=== PATIENT | female | born 1955 | race Caucasian/White ===

== ENCOUNTER 2018-06-19 03:28 | Inpatient (IN) | payer OTHER ==
[~2018-06-19] VITALS: Ht 160 cm; Wt 76.7 kg
[~2018-06-19 03:28] MED LIST: AZOR 5-40 MG T1 EACH PO; BENADRYL25 MG PO; BIOTIN5 M1; DUAVEE 0.45-201 EACH; FERROUS SULFAT325 M3 PO; FLONASE ALLERG9.9 ML; MAGNESIUM400 M1 PO; PEPCID AC20 M2; PROAIR HFA8.5 GM INH; VITAMIN D250000 UNIT PO; VITAMIN D31000 UNI2 PO
--- NOTE | 2018-06-19 12:16 | Operative Report ---
Operative/Inv Procedure Report Surgery Date: 06/19/18 Name of Procedure: Right total knee arthroplasty Pre-Operative Diagnosis: Primary osteoarthritis right knee Post-Operative Diagnosis: Same Estimated Blood Loss: less than 50ml Surgeon/Remnant Sorter: Alfonso VAZQUEZ,Vernon RENAE Anesthesia: block (spinal) IV Fluids: See anesthesia record Implants: Gerlaw triathlon posterior stabilized knee. Size 4 femur, size 4 tibia 9 mm polyethylene insert and a 29 patella Drains: None Specimens: Bone to pathology Tourniquet: 43 minutes Complications: None Condition: Stable Operative Indication: Patient 62-year-old female with osteoarthritis of the right knee which is failed conservative treatment including Kenalog injections. She was indicated for a total knee arthroscopy. The risks and benefits the procedure were discussed with the patient in detail and he wished she wished to proceed. Skilled set of hands as necessary provided by physician physician assistant Magan Boss related with retraction limb positioning and retraction and component assembly throughout the case. Operative/Procedure Note Note: Once informed consent was obtained and the correct limb was identified patient brought the operating placed on table supine position. After demonstration of spinal anesthesia patient had Stack catheter placed, a thigh tourniquet placed and the right lower exam is prepped and draped in usual sterile fashion. To begin the procedure standard midline incision made for right total knee arthroscopy. Sharp dissection is carried onto the skin and subcutaneous tissue. A medial parapatellar arthrotomy is performed and the patella was everted. Fat pad removed from patellar tendon. The patellar thickness was measured to be 21 mm and a plan resection of 8 mm was performed on the patella. The patella was then sized to a size 29 symmetric patella button. The [place] for the patellar button was placed onto the patella and the lug holes were drilled. The patella was protected and retracted laterally and the knee is placed in flexion. Step drill was used to enter the implant intramedullary canal the femur. The distal femoral cutting guide was placed with a 6 degrees valgus cut and a 10 mm resection for the plan resection. The distal femoral resection was made without complication. The femur was then sized with the sizing block. The femur sized to a size 4 femur. A size 4 4-in-1 cutting block was placed onto the femur and the anterior, posterior, chamfer cuts were made without complication. Excess bone was passed off as specimen. The box cut guide was then placed on the femur and the box cut was made for posterior stabilized knee. At this point the lateral meniscal and medial meniscal tissue was removed sharply with a #10 blade. Curved osteotome was used to remove posterior osteophytes from the posterior femoral condyles. Attention was then turned to the tibial cut. A pickle fork retractor was placed with Z retractors to protect the collateral collateral ligaments and the intramedullary step drill was used to enter the intramedullary canal of the tibia. The intramedullary cutting guide for the tibia was placed and a plan resection of 4 mm of bone was taken off the medial, or affected side. Tibial cut was made without complication bone was passed off as specimen. The tibia sized to be a size 4 tibial tray. A trial reduction was done with a 4 tibia and tray and a 4 femur with a 9 mm polyethylene insert. The knee had full extension and flexion of 130 degrees. The knee was stable to varus and valgus stress at 0 and 60 degrees. Patella tracked nicely. The knee was taken through range of motion the tibial component rotation was marked. All components removed and the tibial tray was pinned in place for the keel cut. The keel cut was made without complication. At this point all options remove the knee was pulse lavaged. The cement was mixed on the back table and the components were cemented in place with the tibial component cemented first followed by the femoral component and the patellar button. A 9 mm trial insert was placed and he is placed in extension as the cement hardened. Once the cement was excess cement was removed and once the cement had hardened the knee was taken through range of motion and found to be stable again. A 9 mm polyethylene insert was opened and locked into place on the tibial tray. Tourniquet was released and any bleeding was stopped with electrocautery. The arthrotomy was then closed with #1 Vicryl interrupted sutures. The subcutaneous tissues were closed with #1 Vicryl and 2-0 Vicryl interrupted sutures. Sterile dressing was applied after the skin had been closed by stephany and the patient was awakened and taken recovery in stable condition.
--- NOTE | 2018-06-19 13:16 | Admission Core Measures ---
Acute Coronary Syndrome (CM) ACS Core Measures Acute Coronary Syndrome Diagnosis No Congestive Heart Failure (NEW) CHF Core Measures Congestive Heart Failure Diagnosis No Cerebrovascular Accident CVA Core Measures CVA/TIA Diagnosis No Venous Thromboembolism VTE Core Ha (View Protocol) VTE Risk Factors Surgery No Mechanical VTE Prophylaxis d/t N/A MechProphylax Ordered No VTE Pharm Prophylaxis d/t NA PharmProphylax ordered Problem List As ranked by this Provider includes Assessment & Plan 1. Unilateral primary osteoarthritis, right knee HOME MEDS Home Med List Albuterol Sulfate (Proair Hfa) 90 MCG HFA.AER.AD 2 PUF INH Q4-6 PRN PRN ASTHMA (Reported) Amlodipine Bes/Olmesartan Med (Ángel 5-40 MG Tablet) 5 MG-40 MG TABLET 1 TAB PO DAILY HTN (Reported) Cholecalciferol (Vitamin D3) 1,000 UNIT TABLET 1 TAB PO DAILY SUPPLEMENT ( Reported) diphenhydrAMINE HCl (Benadryl) 25 MG CAP 2 CAP PO QPM SLEEP AID (Reported) Ergocalciferol (Vitamin D2) (Vitamin D2) 50,000 UNIT CAPSULE 1 CAP PO QW SUPPLEMENT (Reported) Ferrous Sulfate 325 MG (65 MG IRON) TABLET 1 TAB PO DAILY SUPPLEMENT ( Reported) Magnesium Oxide (Magnesium) 400 MG CAPSULE 1 CAP PO DAILY SUPPLEMENT ( Reported)
[2018-06-19] MEDS ORDERED: PERCOCET 5-3251 EACH PO (13:22)
[2018-06-19] MEDS ORDERED: ELIQUIS2.5 M1 PO (13:22)
--- NOTE | 2018-06-19 13:24 | Patient Discharge Instructions ---
Discharge Instructions General Discharge Information You were seen/treated for: Right knee pain related to unilateral primary osteoarthritis You had these procedures: Right total knee replacement Watch for these problems: Increasing pain despite the use of pain medication Increasing redness, warmth or swelling Drainage of any type from incision Inability to bear weight on operative leg Persistent nausea and vomiting Fever greater than 101.5 degrees Call Surgeon to remove: Marty Do not soak the wound: Yes No bath, but you may shower: Yes Other wound care: Please keep wound clean and dry. No ointments or lotions of any type on or near incision at any time. No exceptions. Your dressing will be changed by your nurse on the second day after your surgery. Daily dry dressing changes are recommended each day thereafter. Do not soak your wound in a bath or pool at any time until otherwise indicated by your surgeon. You may shower, please dry wound immediately after shower with a clean towel. Special Instructions: Constipation: Pain medication can cause constipation. Your surgeon has recommended that you take Colace and miralax each day. You may discontinue this medication if you develop loose stool or diarrhea. If you wish to continue this medication, it is available over the counter. If you are unable to move your bowels after several days, if you are unable to pass gas and are developing bloating, nausea, or vomiting as a result, please contact your doctor. Diet Continue normal diet: Yes Recommended Diet: Regular Activity Full Activity/No Limits: No Activity Self Limited: Yes Pounds, do NOT lift more than: 10 Acute Coronary Syndrome Inclusion Criteria At DC or during hospital stay patient has or had the following: ACS DIAGNOSIS No Discharge Core Measures Meds if any: Prescribed or Continued at Discharge Meds if any: NOT Prescribed or Continued at Discharge Congestive Heart Failure Inclusion Criteria At DC or during hospital stay patient has or had the following: CHF DIAGNOSIS No Discharge Core Measures Meds if any: Prescribed or Continued at Discharge Meds if any: NOT Prescribed or Continued at Discharge Cerebrovascular accident Inclusion Criteria At DC or during hospital stay patient has or had the following: CVA/TIA Diagnosis No Discharge Core Measures Meds if any: Prescribed or Continued at Discharge Meds if any: NOT Prescribed or Continued at Discharge Venous thromboembolism Inclusion Criteria VTE Diagnosis No VTE Type NONE VTE Confirmed by (Test) NONE Discharge Core Measures - Per Current guidelines, there needs to be overlap - treatment for the first 5 days of Warfarin therapy. - If discharged on Warfarin prior to 5 days of - overlap therapy, the patient will need to be - assessed for post discharge needs including - *Post discharge parental anticoagulation - *Warfarin and/or parental anticoagulation education - *Follow up date to check INR post discharge At least 5 days overlap therapy as Inpatient No Meds if any: Prescribed or Continued at Discharge Note: Overlap Therapy is Warfarin and Anticoagulant Meds if any: NOT Prescribed or Continued at Discharge
--- NOTE | 2018-06-19 13:27 | Surgical Discharge Summary ---
Visit Information Visit Dates Admission Date: 06/19/18 Discharge Date: 06/22/18 History of Present Illness Chief Complaint: Right knee pain related to unilateral primary osteoarthritis Medical History Isolation History: Standard Surgical History Pertinent Surgical History: non-contributory Psychosocial History What is Your Primary Language? Somali Review of Systems: See H&P Hospital Course Course Attending Physician: Vernon Hamilton MD Primary Care Physician: Antwon VAZQUEZ,[facility] Course: Patient was admitted to the hospital for an elective total joint replacement. The procedure was tolerated well and patient was transferred to a general surgical floor. Diet was advanced and tolerated. The patient was evaluated and treated by physical therapy. At the time of hospital discharge, the vital signs were stable, neurovascular status was intact, and pain was controlled with the use of oral pain medications. Complications: None Allergies: Coded Allergies: iodine (HIVES 06/18/18) epinephrine (LOW BLOOD PRESSURE 06/18/18) Disposition Summary Disposition Principal Diagnosis: Right knee unilateral primary osteoarthritis Additional Diagnosis: None Discharge Disposition: home health services Discharge Instructions General Discharge Information Code Status: Full Code Patient's Diet: Regular, advance as tolerated Patient's Activity: WBAT Follow-Up Instructions/Appts: Follow up with Dr. Hamilton in 6 weeks from date of surgery. Please call office to arrange/confirm this appointment. staple removal around post-op day#14 (2 weeks after surgery) Medications at Discharge Discharge Medications: Continue taking these medications: Albuterol Sulfate (Proair Hfa) 90 MCG HFA.AER.AD 2 Puff Inhale through mouth EVERY 4-6 HOURS NEEDED as needed for ASTHMA Amlodipine Bes/Olmesartan Med (Ángel 5-40 MG Tablet) 5 MG-40 MG TABLET 1 Tablet ORAL DAILY Estrogens,Conj/Bazedoxifene (Duavee 0.45-20 MG Tablet) 0.45 MG-20 MG TABLET Ferrous Sulfate (Ferrous Sulfate) 325 MG (65 MG IRON) TABLET 1 Tablet ORAL DAILY diphenhydrAMINE HCl (Benadryl) 25 MG CAP 2 Capsule ORAL Every night Ergocalciferol (Vitamin D2) (Vitamin D2) 50,000 UNIT CAPSULE 1 Capsule ORAL Once a Week Comments: ON sunday Cholecalciferol (Vitamin D3) 1,000 UNIT TABLET 1 Tablet ORAL DAILY Biotin (Biotin) 5 MG CAPSULE Famotidine (Pepcid AC) 20 MG TABLET Magnesium Oxide (Magnesium) 400 MG CAPSULE 1 Capsule ORAL DAILY Fluticasone Propionate (Flonase Allergy Relief) 50 MCG/ACTUATION SPRAY.SUSP Start taking the following new medications: Apixaban (Eliquis) 2.5 MG TABLET 1 Tablet ORAL TWICE DAILY Qty = 84 No Refills Oxycodone HCl/Acetaminophen (Percocet 5-325 MG Tablet) 5 MG-325 MG TABLET 1-2 Tablet ORAL EVERY 4-6 HOURS as needed for PAIN Qty = 36 No Refills Copies To: Antwon VAZQUEZ,Deb
[2018-06-19 14:55] VITALS: BP 120/64
--- NOTE | 2018-06-19 15:03 | PN- Orthopedic ---
Subjective Subjective: Patient comfortable, no pain. She had moderate nausea after surgery however it is resolving at this time. There is no vomiting. No fever or flulike illness and she is recovering from surgery well thus far Objective Vital Signs and I&Os Vital signs stable, afebrile Physical Exam: Well-developed well-nourished no apparent distress. HEENT: Atraumatic, extraocular motion intact Neck: Supple, no lymphadenopathy Respiratory: No respiratory distress Extremities: No edema RIGHT lower extremity dressing in place, Range of motion is 0-60. Compression wrap in place. ALPS in place Neurovascularly intact distally Bilateral calves are supple, nontender. Neuro: Alert and oriented x3 Psych: Mood affect normal, normal memory normal judgment. Skin: Warm and dry, no rash on exposed skin Assessment/Plan Assessment/Plan Postop day #0 status post right total knee arthroplasty Perioperative antibiotics. Pain medication as needed. Out of bed Physical therapy, weightbearing as tolerated IV fluids Regular diet Follow a.m. labs Eliquis starting tomorrow morning for DVT prophylaxis SHIRLENE Stack in a.m. ALPS for DVT prophylaxis Regular home meds Dressing change postop day 2 Plan for discharge home in 2-3 days with VNA services Core Measures Venous Thromboembolism VTE Risk Factors Surgery No Mechanical VTE Prophylaxis d/t N/A MechProphylax Ordered No VTE Pharm Prophylaxis d/t NA PharmProphylax ordered
[2018-06-19 17:00] VITALS: BP 118/60
[2018-06-19 19:00] VITALS: BP 120/60
[2018-06-19 21:00] VITALS: BP 100/70
[2018-06-20 01:54] VITALS: BP 102/60
[2018-06-20 06:55] VITALS: BP 102/60
[2018-06-20 06:56] VITALS: BP 112/62
--- NOTE | 2018-06-20 08:35 | PN- Orthopedic ---
Subjective Subjective: Minimal pain in the right thigh, no other complaints, she is ambulating well, no acute events overnight Objective Vital Signs and I&Os Vital Signs Date Time Temp Pulse Resp B/P B/P Pulse O2 O2 Flow FiO2 Mean Ox Delivery Rate 06/20 0656 97.8 68 20 112/62 96 06/20 0154 98.1 87 20 102/60 95 06/19 2100 97.6 81 19 100/70 94 Room Air 06/19 1900 97.5 80 20 120/60 93 Room Air 06/19 1700 97.8 83 20 118/60 95 Room Air 06/19 1600 Room Air 06/19 1455 97.5 68 16 120/64 98 Room Air Intake & Output 06/20 1600 06/20 0800 06/20 0000 06/19 1600 06/19 0806/19 0000 Intake Total 900 500 Output Total 750 1000 Balance 150 -500 Intake, IV 600 300 Intake, Oral 300 200 Output, Urine 750 1000 Patient 169 lb Weight Weight Bed scale Measurement Method Physical Exam: Well-developed well-nourished no apparent distress. HEENT: Atraumatic, extraocular motion intact Neck: Supple, no lymphadenopathy Respiratory: No respiratory distress Extremities: No edema Right lower extremity dressing in place, Range of motion is 0-60. Compression wrap in place. ALPS in place Neurovascularly intact distally Bilateral calves are supple, nontender. Neuro: Alert and oriented x3 Psych: Mood affect normal, normal memory normal judgment. Skin: Warm and dry, no rash on exposed skin Results Last 48 Hours of Labs: Laboratory Tests 06/20 06 Chemistry Sodium Pending Potassium Pending Chloride Pending Carbon Dioxide Pending Anion Gap Pending BUN Pending Creatinine Pending BUN/Creatinine Ratio Pending Hematology CBC w Diff Pending WBC Pending RBC Pending Hgb Pending Hct Pending MCV Pending MCH Pending MCHC Pending RDW Pending Plt Count Pending MPV Pending Assessment/Plan Assessment/Plan Postop day #1 status post right total knee arthroplasty Pain medication as needed. Out of bed Physical therapy, weightbearing as tolerated DC IV fluids Regular diet Follow a.m. labs Start Eliquis for DVT prophylaxis this morning ALPS for DVT prophylaxis Regular home meds Dressing change postop day 2 Plan for discharge home tomorrow with VNA services Core Measures Venous Thromboembolism VTE Risk Factors Surgery No Mechanical VTE Prophylaxis d/t N/A MechProphylax Ordered No VTE Pharm Prophylaxis d/t NA PharmProphylax ordered
[2018-06-20 09:04] LABS: ABSOLUTE BASOPHIL COUNT 0 /CUMM (0.0-0.2); ABSOLUTE EOSINOPHIL COUNT 0 /CUMM (0.0-0.7); ABSOLUTE GRANULOCYTE CT 9.3 /CUMM (1.4-6.5); ABSOLUTE LYMPH COUNT 1.2 /CUMM (1.2-3.4); ABSOLUTE MONOCYTE COUNT 0.7 /CUMM (0.10-0.60); BASOPHIL % 0 % (0.0-2.0); EOSINOPHIL % 0 % (0-5); HEMATOCRIT 29.8 % (37-47); MEAN CORPUSCULAR HGB 29.2 PG (27.0-31.0); MEAN CORPUSCULAR HGB CONC 34.2 G/DL (33.0-37.0); MEAN CORPUSCULAR VOLUME 85.5 FL (81.0-99.0); MEAN PLATELET VOLUME 9.3 FL (7.4-10.4); PLATELET COUNT 156 /CUMM (130-400); RBC DISTRIBUTION WIDTH 12.9 % (11.5-14.5); RED BLOOD CELL CT 3.49 /CUMM (4.20-5.40); WHITE BLOOD CELL COUNT 11.2 /CUMM (4.8-10.8)
[2018-06-20 10:22] VITALS: BP 118/58
[2018-06-20 10:45] LABS: GRANULOCYTE % 83.1 % (42.2-75.2)
[2018-06-20 20:00] VITALS: BP 102/66
--- NOTE | 2018-06-21 06:56 | PN- Orthopedic ---
Subjective Subjective: POD #2 s/p right TKR. Resting comfortably in bed, although states she had alot of pain overnight. Just received oral pain medication. Passing flatus, no BM yet. Ambulating with PT. Voiding spontaneously. Objective Vital Signs and I&Os Vital Signs Date Time Temp Pulse Resp B/P B/P Pulse O2 O2 Flow FiO2 Mean Ox Delivery Rate 06/20 2107 70 102/66 06/20 2107 70 102/66 06/20 2000 98.2 70 20 102/66 98 Room Air 06/20 1600 98 Room Air 06/20 1022 98.4 63 18 118/58 96 Intake & Output 06/21 0000 06/20 1600 06/20 0000 06/19 1600 Intake Total 300 360 550 900 500 Output Total 650 726 957 3873 Balance 300 -290 250 150 -500 Intake, IV 150 600 300 Intake, Oral 300 360 400 300 200 Output, Urine 650 675 846 0630 Patient 169 lb Weight Weight Bed scale Measurement Method Physical Exam: Gen: AAOx3 in NAD Cor: S1+S2+ Lungs: CTA ronni Abd: soft, NT, ND Ext: right knee dressing removed, replaced. Incision C/D/I with stephany. No surrounding erythema or drainage noted. Edema noted around incision. Palpable DP pulse. Dorsiflexion/plantar flexion intact. Sensation grossly intact. Current Medications: Current Medications Sig/Deisy Start time Last Medication Dose Route Stop Time Status Admin Albuterol Sulfate 2 PUF Q4P PRN 06/19 151 AC INH Amlodipine Besylate 5 MG 06/20 PO 2106 Amlodipine Besylate 5 MG DAILY 06/20 900 DC PO Apixaban 2.5 MG BID 06/20 900 AC 06/20 PO 210 Celecoxib 400 MG DAILY 06/20 900 AC 06/20 PO 0850 Dextrose/Lactated 1,000 ML Q13H 06/19 1500 DC 06/20 Ringer's IV 0240 Diphenhydramine HCl 50 MG AT BEDTIME NEED.. 06/19 1515 06/20 PO 2229 Docusate Sodium 100 MG BID PRN 06/19 1215 AC 06/20 PO 0850 Famotidine 20 MG DAILY 06/20 PO 0851 Ferrous Sulfate 325 MG DAILY 06/20 900 AC 06/20 PO 0850 Losartan Potassium 50 MG 2100 06/20 2100 AC 06/20 PO 2106 Losartan Potassium 50 MG DAILY 06/20 09 DC PO Magnesium Oxide 400 MG DAILY 06/20 0900 AC 06/20 PO 0850 Morphine Sulfate 2 MG Q3P PRN 06/19 1500 AC 06/21 IV 0045 Non-Formulary 0 SEE ADMIN CRITERIA 06/20 900 DC Medication ANY Ondansetron HCl 4 MG Q6P PRN 06/19 1500 AC IV Oxycodone/ 1 TAB Q4P PRN 06/19 1500 AC Acetaminophen PO Oxycodone/ 2 TAB Q4P PRN 06/19 1500 AC 06/21 Acetaminophen PO 0538 Polyethylene Glycol 17 GM DAILY PRN 06/19 1215 AC PO Senna/Docusate Sodium 2 TAB AT BEDTIME NEED.. 06/19 1500 AC PO Results Last 48 Hours of Labs: Laboratory Tests 06/20 655 Chemistry Sodium (137 - 145 mmol/L) 137 Potassium (3.5 - 5.1 mmol/L) 4.0 Chloride (98 - 107 mmol/L) 106 Carbon Dioxide (22 - 30 mmol/L) 25 Anion Gap (5 - 16) 6 BUN (7 - 17 mg/dL) 12 Creatinine (0.5 - 1.0 mg/dL) 0.6 Estimated GFR (>60 ml/min) > 60 BUN/Creatinine Ratio (7 - 25 %) 20.0 Hematology CBC w Diff NO MAN DIFF REQ WBC (4.8 - 10.8 /CUMM) 11.2 H RBC (4.20 - 5.40 /CUMM) 3.49 L Hgb (12.0 - 16.0 G/DL) 10.2 L Hct (37 - 47 %) 29.8 L MCV (81.0 - 99.0 FL) 85.5 MCH (27.0 - 31.0 PG) 29.2 MCHC (33.0 - 37.0 G/DL) 34.2 RDW (11.5 - 14.5 %) 12.9 Plt Count (130 - 400 /CUMM) 156 MPV (7.4 - 10.4 FL) 9.3 Gran % (42.2 - 75.2 %) 83.1 H Lymphocytes % (20.5 - 51.1 %) 10.3 L Monocytes % (1.7 - 9.3 %) 6.6 Eosinophils % (0 - 5 %) 0 Basophils % (0.0 - 2.0 %) 0 Absolute Granulocytes (1.4 - 6.5 /CUMM) 9.3 H Absolute Lymphocytes (1.2 - 3.4 /CUMM) 1.2 Absolute Monocytes (0.10 - 0.60 /CUMM) 0.7 H Absolute Eosinophils (0.0 - 0.7 /CUMM) 0 Absolute Basophils (0.0 - 0.2 /CUMM) 0 Assessment/Plan Assessment/Plan A: POD #2 s/p right TKR; AVSS Plan: Continue pain medication, may need to change to Dilaudid if pain uncontrolled throughout day. Continue Physical therapy. Eliquis for DVT ppx. D/C home likely later today. Core Measures Venous Thromboembolism VTE Risk Factors Surgery No Mechanical VTE Prophylaxis d/t N/A MechProphylax Ordered No VTE Pharm Prophylaxis d/t NA PharmProphylax ordered
[2018-06-21 07:32] VITALS: BP 118/78
--- NOTE | 2018-06-21 12:46 | RADIOLOGY REPORT ---
EXAMINATION: XR KNEE, RIGHT CLINICAL INFORMATION: Status post right TKA. COMPARISON: MRI scan right knee 07/19/2015. TECHNIQUE: AP and lateral views of the right knee were obtained. FINDINGS: There are sequelae of a right total knee arthroplasty. The hardware appears in good anatomic position and intact. No fractures are demonstrated. There are expected postoperative changes in the soft tissues. IMPRESSION: 1. Status post right knee total arthroplasty.
[2018-06-21 15:39] VITALS: BP 150/84
[2018-06-21 23:01] VITALS: BP 130/60
[2018-06-22 06:28] VITALS: BP 120/78
[2018-06-22] MEDS ORDERED: DOCUSATE SODIU100 M3 PO (10:52)
[2018-06-22] MEDS ORDERED: CELEBREX200 M1 PO (10:52)
[2018-06-22] MEDS ORDERED: OMEPRAZOLE40 M1 PO (10:52)
[2018-06-22] MEDS ORDERED: MIRALAX119 GM PO (10:52)
--- NOTE | 2018-06-22 10:58 | PN- Orthopedic ---
Subjective Subjective: Reports pain controlled, significantly better after the one time dose of toradol. Tolerating diet. No dizziness. No shortness of breath. No chest pains. Voiding well. Cleared by PT for home. Anticipates discharge to home today. Objective Vital Signs and I&Os Vital Signs Date Time Temp Pulse Resp B/P B/P Pulse O2 O2 Flow FiO2 Mean Ox Delivery Rate 06/22 08 Room Air 06/22 628 98.6 79 20 120/78 95 Room Air 06/21 2301 98.1 68 20 130/60 96 Room Air 06/21 1935 85 148/84 06/21 193 85 148/84 06/21 1600 85 06/21 1539 98.4 385 20 150/84 97 Intake & Output 06/22 1600 06/22 0000 06/21 1600 06/21 0000 Intake Total 600 600 560 300 360 Output Total 360 650 Balance 240 600 560 300 -290 Intake, Oral 600 600 560 300 360 Output, Urine 360 650 Physical Exam: General - alert & oriented x 3. comfortable. no acute distress. Lungs - clear bilaterally. no w/r/r. Cardiac - s1s2. reg. Abdomen - soft. nontender. Extremities - warm bilaterally. dressing changed, right knee. incision well approximated with stephany. no erythema or exudates. calves soft and nontender b/ l. nvi. Current Medications: Current Medications Sig/Deisy Start time Last Medication Dose Route Stop Time Status Admin Albuterol Sulfate 2 PUF Q4P PRN 06/19 1515 AC INH Amlodipine Besylate 5 MG 06/20 PO 1934 Apixaban 2.5 MG BID 06/20 900 AC 06/22 PO 922 Celecoxib 400 MG DAILY 06/20 900 AC 06/22 PO 922 Diphenhydramine HCl 50 MG AT BEDTIME NEED.. 06/19 1515 06/21 PO 1934 Docusate Sodium 100 MG BID PRN 06/19 1215 AC 06/22 PO 922 Famotidine 20 MG DAILY 06/20 PO 922 Ferrous Sulfate 325 MG DAILY 06/20 900 AC 06/22 PO 922 Ketorolac 15 MG ONCE ONE 06/21 1400 DC 06/21 Tromethamine IV 06/21 1401 1452 Losartan Potassium 50 MG 06/20 AC 06/21 PO 1935 Magnesium Oxide 400 MG DAILY 06/20 0900 AC 06/22 PO 0923 Morphine Sulfate 2 MG Q3P PRN 06/19 1500 AC 06/21 IV 0045 Ondansetron HCl 4 MG Q6P PRN 06/19 1500 AC IV Oxycodone/ 1 TAB Q4P PRN 06/19 1500 AC Acetaminophen PO Oxycodone/ 2 TAB Q4P PRN 06/19 1500 AC 06/22 Acetaminophen PO 0924 Patient Medication 1 ED ONE ONE 06/21 2000 [place] Teaching ED 06/21 2001 Polyethylene Glycol 17 GM DAILY PRN 06/19 1215 AC 06/22 PO 0923 Senna/Docusate Sodium 2 TAB AT BEDTIME NEED.. 06/19 1500 AC PO Assessment/Plan Assessment/Plan This 62 year old female with hx htn, gerd, asthma, is POD #3 s/p right TKR, pain better controlled tolerating diet pain controlled currently dressing changed continue eliquis BID - dvt ppx continue PT continue bowel regime d/c home today with [facility] will d/w Core Measures Venous Thromboembolism VTE Risk Factors Surgery No Mechanical VTE Prophylaxis d/t N/A MechProphylax Ordered No VTE Pharm Prophylaxis d/t NA PharmProphylax ordered
== END 2018-06-22 13:49 | disposition home health service (06) | DRG 470 ==
LOC: SDA 03:28 → ENRESERV 13:00 → ENTRNSPT 14:28 → EDTRNSPT 14:41 → EDTRNSPTSTS 14:41 → 2NA 14:47 → CMPTRNSPT 15:14 → ENPENDDIS 06-22 10:57 → ENTRNSPT 06-22 13:46 → 2NA 06-22 13:49 → EDTRNSPT 06-22 13:54 → EDTRNSPTSTS 06-22 13:54 → CMPTRNSPT 06-22 14:04
PROVIDERS: Physician Assistant Surgical
PROC: 0SRC0J9 Replacement of Right Knee Joint with Synthetic Substitute, Cemented, Open Approach (ICD-10-PCS; principal; 2018-06-19)
PROC: 3E0T3BZ Introduction of Anesthetic Agent into Peripheral Nerves and Plexi, Percutaneous Approach (ICD-10-PCS; principal; 2018-06-19)
DX: M17.11 Unilateral primary osteoarthritis, right knee (principal); K21.9 Gastro-esophageal reflux disease without esophagitis; E78.5 Hyperlipidemia, unspecified; I10 Essential (primary) hypertension; J45.909 Unspecified asthma, uncomplicated; Z91.041 Radiographic dye allergy status; Z79.51 Long term (current) use of inhaled steroids
CPT/HCPCS: 2NASP; 36592; 73560-RT; 82436; 87086; 97110-GO; 97116-GO; 97161-GP; 97530-GO; C1713; C9290; J0131; J1100; J1885; J2250; J2405; J3370; J3490; J7040